=== PATIENT | male | born 1975 | race Hispanic/Latino ===

== ENCOUNTER 2023-12-19 09:31 | Emergency (ER) | payer MEDICARE, OTHER ==
[2023-12-19 10:19] LABS: #Basophils 0.1 thou/uL (0.0-0.2); #Eosinphils 0.1 thou/uL (0.0-0.7); #Lymphocytes 1.6 thou/uL (1.20-3.40); #Monocytes 0.6 thou/uL (0.11-0.59); %Lymphocytes 21.8 % (21.0-51.0); %Monocytes 7.6 % (0.0-10.0); %Neutrophils 68.7 % (42.0-75.0); Hematocrit 46.3 % (42.0-52.0); Hemoglobin 14.8 g/dL (14.0-18.0); Large Platelets SLIGHT (None Seen); MDiff Complete? YES; Mean Corpuscular HGB CONC 31.9 g/dL (32.0-36.0); Mean Corpuscular Hemoglobin 28.9 pg (27.0-31.0); Mean Corpuscular Volume 90.6 fl (78.0-98.0); Mean Platelet Volume 12.3 fL (7.4-10.4); Platelet Count 171 10x3/uL (130-400); RBC Distribution Width 12.6 % (11.5-14.5); Red Blood Cell (RBC) Count 5.11 mill/uL (4.70-6.10); White Blood Cell (WBC) Count 7.2 10x3/uL (4.8-10.8)
[2023-12-19 10:24] LABS: Troponin I Less than 0.010 ng/mL (< 0.028)
[2023-12-19 10:25] LABS: ALT (SGPT) 23 U/L (8-55); AST (SGOT) 19 U/L (5-34); Albumin 3.8 g/dL (3.5-5.0); Alkaline Phosphatase 78 U/L (40-110); Anion Gap 12 mmol/L (10-20); BUN (Urea Nitrogen) 13 mg/dL (8.9-20.6); Bilirubin, Total 0.5 mg/dL (0.2-1.2); Calc. Creatinine Clearance 0 mL/min (70-130); Calcium 8.3 mg/dL (7.8-10.44); Carbon Dioxide 21 mmol/L (22-29); Chloride 111 mmol/L (98-107); Estimated GFR 109; Globulin 2.6 g/dL (2.4-3.5); Glucose 110 mg/dL (70-105); Lipase 25 U/L (8-78); Protein, Total 6.4 g/dL (6.0-8.3); Sodium 140 mmol/L (136-145)
[2023-12-19] MEDS ORDERED: Iopamidol 370 76% 100 ML VIAL ONE (11:02)
== END 2023-12-19 11:05 | disposition home or self-care (01) ==
LOC: BURERS 09:31
DX: K57.33 Diverticulitis of large intestine without perforation or abscess with bleeding (principal); R07.9 Chest pain, unspecified; F17.210 Nicotine dependence, cigarettes, uncomplicated; F17.290 Nicotine dependence, other tobacco product, uncomplicated; K21.9 Gastro-esophageal reflux disease without esophagitis; Z79.899 Other long term (current) drug therapy
CPT/HCPCS: 36415; 71045; 74177; 80053; 82274; 83690; 84484; 85025; 93005; Q9967